=== PATIENT | male | born 1970 ===

== ENCOUNTER 2018-10-18 16:57 | Emergency (ER) | payer OTHER ==
[~2018-10-18] VITALS: Ht 172.7 cm; Wt 81.6 kg
[2018-10-18] MEDS ORDERED: COLAGENO (17:14)
[2018-10-18] MEDS ORDERED: VITAMIN C1000 MG (17:14)
== END 2018-10-18 20:41 | disposition home or self-care (01) ==
LOC: ER 16:57
DX: R51 Headache (principal)

== ENCOUNTER 2019-09-16 20:00 | Emergency (ER) | payer OTHER ==
[~2019-09-16] VITALS: Ht 172.7 cm; Wt 81.6 kg
[~2019-09-16 20:00] MED LIST: COLAGENO; VITAMIN C1000 MG
== END 2019-09-16 21:23 | disposition home or self-care (01) ==
LOC: ER 20:00
DX: G58.8 Other specified mononeuropathies (principal)

== ENCOUNTER 2020-07-05 18:17 | Emergency (ER) | payer OTHER ==
[~2020-07-05] VITALS: Ht 172.7 cm; Wt 79.8 kg
[2020-07-05] MEDS ORDERED: SIMVASTATIN5 MG (18:31)
[2020-07-05] MEDS ORDERED: AMOX-CLAV 875-1 EACH PO (20:56)
[2020-07-05] MEDS ORDERED: INTESTINEX680 M2 PO (20:56)
== END 2020-07-05 21:44 | disposition home or self-care (01) ==
LOC: ER 18:17
DX: H66.91 Otitis media, unspecified, right ear (principal)

== ENCOUNTER 2020-09-10 16:09 | Emergency (ER) | payer OTHER ==
[~2020-09-10] VITALS: Ht 172.7 cm; Wt 77.1 kg
[~2020-09-10 16:09] MED LIST changes: +AMOX-CLAV 875-1 EACH PO; +INTESTINEX680 M2 PO; +SIMVASTATIN5 MG
[2020-09-10] MEDS ORDERED: CILOXAN5 ML OP (18:12)
[2020-09-10] MEDS ORDERED: KETO10TA2 PO (18:12)
== END 2020-09-10 19:46 | disposition home or self-care (01) ==
LOC: ER 16:09
DX: S05.02XA Injury of conjunctiva and corneal abrasion without foreign body, left eye, initial encounter (principal); H10.89 Other conjunctivitis; H57.12 Ocular pain, left eye; W45.8XXA Other foreign body or object entering through skin, initial encounter; Y93.89 Activity, other specified; Y92.69 Other specified industrial and construction area as the place of occurrence of the external cause; Y99.8 Other external cause status

== ENCOUNTER 2020-12-27 19:29 | Emergency (ER) | payer OTHER ==
[~2020-12-27] VITALS: Ht 172.7 cm; Wt 85.3 kg
[~2020-12-27 19:29] MED LIST changes: +CILOXAN5 ML OP; +KETO10TA2 PO
== END 2020-12-27 23:25 | disposition home or self-care (01) ==
LOC: ER 19:29
DX: S00.03XA Contusion of scalp, initial encounter (principal); S50.02XA Contusion of left elbow, initial encounter; S40.011A Contusion of right shoulder, initial encounter; S10.83XA Contusion of other specified part of neck, initial encounter; S20.213A Contusion of bilateral front wall of thorax, initial encounter; Y30.XXXA Falling, jumping or pushed from a high place, undetermined intent, initial encounter; Y93.89 Activity, other specified; Y92.89 Other specified places as the place of occurrence of the external cause; Y99.8 Other external cause status

== ENCOUNTER 2021-01-30 17:06 | Emergency (ER) | payer OTHER ==
[~2021-01-30] VITALS: Ht 172.7 cm; Wt 77.1 kg
== END 2021-01-30 20:05 | disposition home or self-care (01) ==
LOC: ER 17:06
DX: U07.1 COVID-19 (principal)

== ENCOUNTER 2021-02-06 13:16 | Emergency (ER) | payer OTHER ==
[~2021-02-06] VITALS: Ht 172.7 cm; Wt 77.1 kg
[2021-02-06] MEDS ORDERED: MOXIFLOXACIN H400 MG PO (16:49)
[2021-02-06] MEDS ORDERED: XOPENEX0.63 MG/3 IH (16:49)
[2021-02-06] MEDS ORDERED: MUCINEX DM ER1 EAC1 PO (16:49)
[2021-02-06] MEDS ORDERED: MEDROLPACK PO (16:49)
== END 2021-02-06 16:59 | disposition home or self-care (01) ==
LOC: ER 13:16
DX: R06.02 Shortness of breath (principal); R05 Cough; B34.9 Viral infection, unspecified